=== PATIENT | male | born 1975 | race Caucasian/White ===

== ENCOUNTER 2017-03-09 18:46 | Emergency (ER) | payer SELFPAY ==
[~2017-03-09] VITALS: Ht 185.4 cm; Wt 79.1 kg
[~2017-03-09 18:46] MED LIST: CEPHALEXIN500 M1 PO; NORCO 325 MG-51 TAB PO; SEPTRA DS 8001 TAB PO
[2017-03-09 22:15] VITALS: BP 130/94
== END 2017-03-09 22:15 | disposition short-term general hospital (02) ==
LOC: ED 18:46
DX: K85.20 Alcohol induced acute pancreatitis without necrosis or infection (principal); F10.251 Alcohol dependence with alcohol-induced psychotic disorder with hallucinations; Y90.8 Blood alcohol level of 240 mg/100 ml or more; D69.6 Thrombocytopenia, unspecified; Z91.81 History of falling; R32 Unspecified urinary incontinence
CPT/HCPCS: J2060; J2405; J3411; J7030

== ENCOUNTER 2017-06-10 15:34 | Emergency (ER) | payer SELFPAY ==
[~2017-06-10] VITALS: Ht 185.4 cm; Wt 77.3 kg
[2017-06-10 19:40] VITALS: BP 140/100
== END 2017-06-10 19:40 | disposition home or self-care (01) ==
LOC: ED 15:34
DX: F10.20 Alcohol dependence, uncomplicated (principal); Y90.8 Blood alcohol level of 240 mg/100 ml or more; R74.8 Abnormal levels of other serum enzymes; R55 Syncope and collapse; R51 Headache; M54.2 Cervicalgia; Z91.81 History of falling; K08.89 Other specified disorders of teeth and supporting structures
CPT/HCPCS: J3411; J7030

== ENCOUNTER → 2017-12-23 | Outpatient (CLI) | payer SELFPAY ==
[2017-12-23 12:09] LABS: HEMATOCRIT 39.5 % (42.0-52.0); MEAN PLATELET VOLUME 10.9 fl (7.4-10.4); RED BLOOD COUNT 3.41 M/mm3 (4.20-5.60); RED CELL DISTRIBUTION WIDTH 13.2 % (11.5-14.5); WHITE BLOOD COUNT 12.3 K/mm3 (4.8-10.8)
[2017-12-23 12:26] LABS: ALBUMIN 3.7 g/dL (3.5-5.0); BUN/CREATININE RATIO 17.8 (6.0-26.0); CALCIUM 9.4 mg/dL (8.4-10.2); POTASSIUM 4.3 mmol/L (3.6-5.0); TOTAL BILIRUBIN 4.5 mg/dL (0.2-1.3); TOTAL PROTEIN 7.6 g/dL (6.3-8.2)
== END ==
LOC: LAB 11:55 → EDSTATUS 18:44
PROVIDERS: Family Medicine
DX: K74.60 Unspecified cirrhosis of liver (principal)

== ENCOUNTER → 2018-02-22 | Outpatient (CLI) | payer SELFPAY ==
[2018-02-22 12:08] LABS: HEMATOCRIT 55.4 % (42.0-52.0); HEMOGLOBIN 18.7 g/dL (13.5-18.0); MEAN PLATELET VOLUME 9.5 fl (7.4-10.4); RED BLOOD COUNT 5.32 M/mm3 (4.20-5.60); RED CELL DISTRIBUTION WIDTH 13.4 % (11.5-14.5); WHITE BLOOD COUNT 7.1 K/mm3 (4.8-10.8)
== END ==
LOC: LAB 11:34
DX: R17 Unspecified jaundice (principal)

== ENCOUNTER 2018-11-26 19:03 | Emergency (ER) | payer OTHER ==
[~2018-11-26] VITALS: Ht 185.4 cm; Wt 84.1 kg
[2018-11-26 19:45] LABS: EOS # 0.1 (0.04-0.40); HEMATOCRIT 42.3 % (42.0-52.0); HEMOGLOBIN 14.7 g/dL (13.5-18.0); MEAN CELL VOLUME 103 fl (78-100); MEAN CORPUSCULAR HGB CONC 35 g/dL (33-37); MEAN PLATELET VOLUME 10.9 fl (7.4-10.4); MONO # 0.6 (0.20-0.80); NEU # 4.4 (1.40-6.50); PLATELET COUNT 132 K/mm3 (130-400); RED BLOOD COUNT 4.11 M/mm3 (4.20-5.60); RED CELL DISTRIBUTION WIDTH 12.3 % (11.5-14.5)
[2018-11-26 19:50] LABS: MEAN CORPUSCULAR HEMOGLOBIN 36 pg (27-31)
[2018-11-26 19:56] LABS: ALBUMIN 4.5 g/dL (3.5-5.0); CALCIUM 9.4 mg/dL (8.4-10.2); POTASSIUM 3.4 mmol/L (3.6-5.0); TOTAL BILIRUBIN 7.8 mg/dL (0.2-1.3); TOTAL PROTEIN 7.6 g/dL (6.3-8.2)
[2018-11-26 20:41] LABS: PARTIAL THROMBOPLASTIN TIME 24.3 SECONDS (21.0-32.0); PROTHROMBIN TIME 9.9 SECONDS (9.0-12.0)
[2018-11-26 21:09] LABS: URINE APPEARANCE CLEAR; URINE BILIRUBIN 3+ (NEGATIVE); URINE BLOOD NEGATIVE (NEGATIVE); URINE COLOR AMBER; URINE GLUCOSE NEGATIVE (NEGATIVE); URINE KETONE NEGATIVE (NEGATIVE); URINE LEUKOCYTE ESTERASE NEGATIVE (NEGATIVE); URINE NITRATE NEGATIVE (NEGATIVE); URINE PROTEIN(semi-quant) TRACE mg/dL (NEGATIVE); URINE UROBILINOGEN 1 mg/dL (NORMAL); URINE WBC 0-1 /hpf (0-3)
[2018-11-26] MEDS ORDERED: TRAMADOL 50 MG TAB PO (21:43)
[2018-11-26] MEDS ORDERED: NATURE'S BLEND1 TA6 PO (21:43)
[2018-11-26] MEDS ORDERED: GOOD NEIGHBOR P20 M1 PO (21:43)
[2018-11-26 21:55] VITALS: BP 147/91
== END 2018-11-26 21:55 ==
LOC: ED 19:03
PROVIDERS: Family Medicine
DX: R17 Unspecified jaundice (principal); Z87.19 Personal history of other diseases of the digestive system

== ENCOUNTER → 2018-12-02 | Outpatient (CLI) | payer OTHER ==
[2018-11-26 21:55] VITALS: BP 147/91
[~2018-12-02] MED LIST changes: +GOOD NEIGHBOR P20 M1 PO; +NATURE'S BLEND1 TA6 PO; +TRAMADOL 50 MG TAB PO
== END ==
LOC: RAD 08:55
DX: K83.9 Disease of biliary tract, unspecified (principal); R10.11 Right upper quadrant pain; R17 Unspecified jaundice